=== PATIENT | female | born 1950 | race Caucasian/White ===

== ENCOUNTER → 2016-11-26 | Outpatient (CLI) | payer OTHER ==
--- NOTE | 2016-11-26 15:22 | MA ---
Screening Digital Mammogram With Tomosynthesis and iCAD Indication: Routine screening. Technique: Standard digital CC projections were obtained. Digital breast tomosynthesis was performed in the MLO projection with reconstruction at 1.0-mm slice thickness. Composite MLO views were recons tructed. This examination was processed by the iCAD computer-aided detection system. Comparison: November 2015, July 2012, and June 2011. Breast density: Type C. Findings: CAD was reviewed. No suspicious microcalcifications, mass, or architectural distortion. Impression: Negative mammogram BI-RADS 1: Negative mammogram. Recommendation: Routine screening is recommended in one year, as long as physical examination is grace ign in this patient with moderately dense breast parenchyma. [facility] will send a result letter to the patient. Negative mammography should not preclude additional workup of a clinically suspicious finding. The patient's information is entered into a reminder system with a target due date for her next mammo gram.
== END ==
LOC: FIMAGING 11:57
DX: Z12.31 Encounter for screening mammogram for malignant neoplasm of breast (principal)
CPT/HCPCS: G0202

== ENCOUNTER → 2017-08-15 | Outpatient (CLI) | payer OTHER | LOC: FIMAGING 14:07 | PROVIDERS: ATTEND Internal Medicine | DX: Z13.820 Encounter for screening for osteoporosis (principal); M81.0 Age-related osteoporosis without current pathological fracture ==

== ENCOUNTER → 2017-11-27 | Outpatient (CLI) | payer OTHER | LOC: FIMAGING 13:47 | PROVIDERS: ATTEND Internal Medicine | DX: Z12.31 Encounter for screening mammogram for malignant neoplasm of breast (principal) ==

== ENCOUNTER 2018-05-15 21:45 | Emergency (ER) | payer OTHER ==
[2018-05-15 21:53] VITALS: BP 123/84
--- NOTE | 2018-05-15 22:18 | EDPHY ---
General Time Seen by Provider: 05/15/18 22:08 Narrative: CHIEF COMPLAINT: Laceration HISTORY OF PRESENT ILLNESS: Patient presents with complaints of laceration to the right arm. She sustained this just prior to arrival. She was reaching into her sink when she caught her right arm on the medicine cabinet door. It was moderately painful to time but this has resolved. There was moderate bleeding that stopped with pressure. She has no numbness, tingling or weakness distally. No difficulty bending or straightening her wrist or fingers. No injury elsewhere. The medicine cabinet door did not break. Her tetanus is up-to-date. No other associated complaints or modifying factors. TIME OF INJURY: Just prior to arrival TETANUS STATUS: Less than 5 years ago MEDICAL/SURGICAL/SOCIAL HISTORY: Uncomplicated with no anticoagulant use. REVIEW OF SYSTEMS: Ten systems reviewed and are negative unless otherwise noted in the HPI EXAMINATION General Appearance: Alert, no distress Head: normocephalic, atraumatic Cardiovascular: Pulses normal throughout. Brisk cap refill Neurological: A&O, sensory symmetric, strength symmetric Skin: Warm and dry, no rash. There is a 7 cm, v-shaped laceration to the right posterior forearm that is superficial. There is no compromise of the fascial layer. No foreign body. Neuro intact distally. Extremities: Tenderness of the right forearm laceration with full range of motion of the wrist and fingers including flexion extension, supination, pronation. DIFFERENTIAL DIAGNOSES: Including but not limited to: Laceration, laceration with tendon injury, laceration foreign body MDM: 10:10 p.m. Superficial laceration to the right forearm that does require suture repair but does not compromise the fascia of the extensor compartment. She is neuro intact distally. No risk of foreign body. No bony tenderness. Wound has been anesthetized. 11:15 p.m. Complicated laceration has been closed without difficulty. Excellent approximation of the wound borders. There is no foreign body. She is neuro intact distally postprocedure. We discussed wound care. We discussed ED precautions. We discussed returning here for suture removal appropriate time. She is comfortable this plan and discharged home stable condition. PROCEDURE: Laceration repair Consent: Verbal Location: Right forearm, dorsum Length of repair: 7 cm, v-shaped to complicated Complexity: Complex Layer involvement: Simple Anesthesia: Local per 1% lidocaine with epinephrine, 8 mL Irrigation: Extensive Debridement: None Procedure description: Following good anesthesia, the wound was copiously irrigated. Wound bed was explored with a sterile glove, and there is no foreign body noted. No injury to underlying muscle or fascia. Wound borders were approximated well with good hemostasis. Tolerated well without complication. Suture/Staple material: 4-0 Prolene, 12 simple interrupted sutures Wound care: Routine as discussed Suture/Staple removal:10 Days SUPERVISION: This patient was independently evaluated without direct involvement of or examination by the attending physician. ED Precautions: Worsening pain. Erythema, edema, cyanosis, pallor, paresthesia or anesthesia. - History Smoking Status: Never smoked - Objective Vital Signs: Initial Vital Signs Temperature (C) 97.5 F 05/15/18 21:50 Heart Rate 72 05/15/18 21:50 Respiratory Rate 16 05/15/18 21:50 Blood Pressure 123/84 H 05/15/18 21:50 O2 Sat (%) 96 05/15/18 21:50 O2 Delivery Mode Room Air Allergies/Adverse Reactions: No Known Allergies Allergy (Verified 05/15/18 21:53) Home Medications: Medication Instructions Recorded Clonazepam 06/18/16 Estrace 06/18/16 Progesterone 06/18/16 Departure - Departure Disposition: Home, Routine, Self-Care Clinical Impression: Laceration of right forearm without foreign body Qualifiers: Encounter type: initial encounter Qualified Code(s): S51.811A - Laceration without foreign body of right forearm, initial encounter Condition: Good Instructions: Care For Your Stitches (DC), Laceration (ED) Additional Instructions: 1. Daily wound care as discussed 2. Return to emergency department in 10 days for suture removal 3. Return to emergency department for redness, warmth, fever or purulence from the wound Referrals: Bev Dia MD [Primary Care Provider] - As per Instructions Physician,Emergency DeptMD [Medical Doctor] - As per Instructions (Ten days for suture removal)
== END 2018-05-15 23:54 | disposition home or self-care (01) ==
PROC: 0HQDXZZ Repair Right Lower Arm Skin, External Approach (ICD-10-PCS; principal; 2018-05-15)
DX: S51.811A Laceration without foreign body of right forearm, initial encounter (principal); W22.8XXA Striking against or struck by other objects, initial encounter; Y99.8 Other external cause status; Y93.89 Activity, other specified

== ENCOUNTER 2018-07-03 13:22 | Emergency (ER) | payer OTHER ==
--- NOTE | 2018-07-03 13:41 | EDPHY ---
H & P Smoking Status: Never smoked Time Seen by Provider: 07/03/18 13:32 HPI/ROS: CHIEF COMPLAINT: Skin tear dorsal right hand HISTORY OF PRESENT ILLNESS: 68-year-old female with up-to-date tetanus was walking up her stair case which is an open stair case, her toe caught and the dorsal aspect of her hand impacted the underside of a stair tread. She sustained a skin tear. No underlying osseous discomfort. No flexor extensor deficits. PRIMARY CARE PROVIDER: Dr. Bev Dia REVIEW OF SYSTEMS: A ten point review of systems was performed and is negative with the exception of the items mentioned in the HPI PHYSICAL EXAM (Prior to examination, patient consented to physical exam, hands were washed and my usual and customary physical exam procedures followed) 1) GENERAL: Well-developed, well-nourished, alert and oriented. Appears to be in no acute distress. 2) HEAD: Normocephalic 3) HEENT: Pupils equal, round, reactive to light bilaterally. 4) LUNGS: Breathing comfortably. 5) MUSCULOSKELETAL: Right dorsal hand 4 cm skin tear with more than likely viable flap tissue. Flap tissue is not thick enough to support sutures. Soft compartments. Extensor function of all digits intact. No fascial defects. 6) SKIN: Skin tear dorsal hand 7) VASCULAR: pulses and cap refill present are brisk 8) NEUROLOGIC: Radial, ulnar, median nerve function intact with no deficits appreciated on exam DIFFERENTIAL DIAGNOSIS: in no particular order including but not limited to fracture, sprain, compartment syndrome (Stephon Carrion Rajani) Constitutional: Initial Vital Signs Temperature (C) 36.3 C 07/03/18 13:27 Heart Rate 68 07/03/18 13:27 Respiratory Rate 18 07/03/18 13:27 Blood Pressure 155/86 H 07/03/18 13:27 O2 Sat (%) 100 07/03/18 13:27 O2 Delivery Mode Room Air Allergies/Adverse Reactions: No Known Allergies Allergy (Verified 07/03/18 13:27) Home Medications: Medication Instructions Recorded Clonazepam 06/18/16 Estrace 06/18/16 Progesterone 06/18/16 MDM/Departure - MDM ED Course/Re-evaluation: The patient's skin tear is not thick enough to support sutures. Steri-Strips placed, bulky dressing applied. Recommend close follow up with primary care provider. My usual and customary wound precautions and instructions provided. I saw this patient independently based on established practice protocols. Care of patient under supervision of secondary supervising physician Dr Solomon ( Stephon Carrion) The patient was evaluated and managed by the Physician Boiler Service Technician. My co- signature indicates that I have reviewed this chart and I agree with the findings and plan of care as documented. I am the secondary supervising physician. (Lynn Solomon) - Depart Disposition: Home, Routine, Self-Care Clinical Impression: Skin tear of right hand without complication Qualifiers: Encounter type: initial encounter Qualified Code(s): S61.411A - Laceration without foreign body of right hand, initial encounter Condition: Good Instructions: Skin Tear (ED) Additional Instructions: Return to the ER if you develop redness, swelling, discharge, warmth to the wound, red streaks going up your arm, or any other symptoms that concern you. Referrals: Bev Dia MD [Primary Care Provider] - 2-3 days, call for appt.
[2018-07-03 13:55] VITALS: BP 125/70
== END 2018-07-03 14:18 | disposition home or self-care (01) ==
DX: S61.411A Laceration without foreign body of right hand, initial encounter (principal); W22.09XA Striking against other stationary object, initial encounter; Y92.018 Other place in single-family (private) house as the place of occurrence of the external cause

== ENCOUNTER → 2018-11-28 | Outpatient (CLI) | payer OTHER | LOC: FIMAGING 19:12 | PROVIDERS: ATTEND Orthopaedic Surgery Sports Medicine | DX: M66.84 Spontaneous rupture of other tendons, hand (principal) ==

== ENCOUNTER → 2018-11-28 | Outpatient (CLI) | payer OTHER | LOC: FIMAGING 09:40 | PROVIDERS: ATTEND Internal Medicine | DX: Z12.31 Encounter for screening mammogram for malignant neoplasm of breast (principal) ==